=== PATIENT | male | born 1970 | race Caucasian/White ===

== ENCOUNTER 2021-04-23 13:52 | Emergency (ER) | payer OTHER ==
[2021-04-23 14:02] VITALS: BP 158/82; PULSE 88; TEMP 98.6; BMI 38.6
[2021-04-23 15:28] LABS: BASO % 0.4 % (0-2.0); EOS % 4.9 % (0-4.5); HEMATOCRIT 43.5 % (35.4-49); LYMPH % 22.4 % (8-40); MCH 27.9 pg (25.7-33.7); MCHC 32.2 g/dl (32.0-35.9); MEAN CELL VOLUME 86.6 fl (80-96); MEAN PLT VOLUME 7.3 fl (7.5-11.1); MONO % 7.5 % (3.8-10.2); NEUT % 64.8 % (42.8-82.8); PLATELET COUNT 430 10^3/uL (134-434); RBC 5.03 M/mm3 (4.00-5.60); RDW 17.1 % (11.9-15.9); WHITE BLOOD COUNT 11.2 K/mm3 (4.0-10.0)
[2021-04-23 15:34] LABS: INR 1.16 (0.83-1.09); PROTHROMBIN TIME (PATIENT) 14.2 SEC (9.7-13.0)
[2021-04-23 15:37] LABS: ACTIVATED PTT 37.4 SECONDS (25.2-36.5)
[2021-04-23 15:51] LABS: CALCIUM 9.6 mg/dL (8.5-10.1)
[2021-04-23 15:52] LABS: ALBUMIN 3.9 g/dl (3.4-5.0); BLOOD UREA NITROGEN 17.1 mg/dL (7-18)
[2021-04-23 15:55] LABS: CREATININE 1.1 mg/dL (0.55-1.3)
[2021-04-23 15:56] LABS: BILIRUBIN,TOTAL 0.2 mg/dL (0.2-1); TOT PROT 7.8 g/dl (6.4-8.2)
== END 2021-04-23 16:25 | disposition home or self-care (01) ==
LOC: JER 13:52
DX: M71.21 Synovial cyst of popliteal space [Baker], right knee (principal)
CPT/HCPCS: 36415; 80053; 85025; 85610; 85651; 85730; 86140; 87040; 93971-TC; 99284-25

== ENCOUNTER 2023-03-05 16:52 | Emergency (ER) | payer OTHER ==
[2023-03-05 17:30] VITALS: BP 125/72; PULSE 67; RESP 20; TEMP 97.9; BMI 36.1
== END 2023-03-05 21:50 | disposition home or self-care (01) ==
LOC: JERFT 16:52
DX: M54.42 Lumbago with sciatica, left side (principal); G89.29 Other chronic pain
CPT/HCPCS: 99282-25

== ENCOUNTER 2023-03-13 21:37 | Emergency (ER) | payer OTHER ==
[2023-03-13 21:41] VITALS: BP 126/84; PULSE 94; RESP 18; TEMP 97.6; BMI 35.9
[2023-03-13] MEDS ORDERED: FAMOTIDINE 20 MG/50 ML IVPB 20 MG/50 ML MG IVPB ONE ×2 (22:04→22:09)
[2023-03-13] MEDS ORDERED: DEXAMETHASONE SOD PHOSPHATE 10 MG/1 ML VIAL IVPUSH ONE (22:04)
[2023-03-13] MEDS ORDERED: DEXAMETHASONE SOD PHOSPHATE 10 MG/1 ML VIAL ONE (22:08)
[2023-03-13 22:30] LABS: BASO % 0.2 % (0-2.0); EOS % 0.9 % (0-4.5); HEMATOCRIT 45.5 % (35.4-49); HEMOGLOBIN 15.5 GM/dL (11.7-16.9); LYMPH % 8.3 % (8-40); MCH 29.4 pg (25.7-33.7); MCHC 34.1 g/dl (32.0-35.9); MEAN CELL VOLUME 86.3 fl (80-96); MEAN PLT VOLUME 7.7 fl (7.5-11.1); NEUT % 85.6 % (42.8-82.8); PLATELET COUNT 346 10^3/uL (134-434); RBC 5.27 M/mm3 (4.00-5.60); RDW 13.4 % (11.9-15.9); WHITE BLOOD COUNT 15.7 K/mm3 (4.0-10.0)
[2023-03-13 22:48] LABS: POTASSIUM 4.9 mmol/L (3.5-5.1)
[2023-03-13 22:50] LABS: CALCIUM 8.5 mg/dL (8.5-10.1)
[2023-03-13 22:51] LABS: ALBUMIN 3.2 g/dl (3.4-5.0); BLOOD UREA NITROGEN 23.8 mg/dL (7-18)
[2023-03-13 22:56] LABS: BILIRUBIN,TOTAL 0.4 mg/dL (0.2-1); TOT PROT 6.6 g/dl (6.4-8.2)
== END 2023-03-13 23:56 | disposition home or self-care (01) ==
LOC: JER 21:37
PROC: 3E033GC Introduction of Other Therapeutic Substance into Peripheral Vein, Percutaneous Approach (ICD-10-PCS; principal; 2023-03-13)
PROC: 3E033GC Introduction of Other Therapeutic Substance into Peripheral Vein, Percutaneous Approach (ICD-10-PCS; 2023-03-13)
PROC: 3E033GC Introduction of Other Therapeutic Substance into Peripheral Vein, Percutaneous Approach (ICD-10-PCS; 2023-03-13)
DX: R21 Rash and other nonspecific skin eruption (principal); R06.02 Shortness of breath; R42 Dizziness and giddiness; R13.10 Dysphagia, unspecified; R11.0 Nausea; T78.40XA Allergy, unspecified, initial encounter
CPT/HCPCS: 36415; 80053; 85025; 99284-25; J1100